=== PATIENT | female | born 1960 | race Caucasian/White ===

== ENCOUNTER 2018-09-10 19:34 | Observation (INO) | payer BC ==
--- NOTE | 2018-09-10 19:40 | ED ---
SOB HPI - General Stated Complaint: SOB Time Seen by Provider: 09/10/18 19:37 Source: RN notes reviewed, old records reviewed - History of Present Illness Initial Comments: This is a 57-year-old female the ER for evaluation. Patient brought in by EMS for significant shortness of breath. Patient does feel improved upon arrival to ER. Per EMS patient was having significant bouts of atrial fibrillation during route rates in the 150s. Patient does have history of [place] valve replacement. denies any chest pain currently. She was a little diaphoretic and short of breath during this episode MD Complaint: shortness of breath -: hour(s) Radiation: other (No pain) Severity: moderate (Shortness of breath) Severity scale (1-10): 5 (Shortness of breath) Consistency: constant Improves With: oxygen, rest Worsens With: exertion Known History Of: other (History of valve replacement) Associated Symptoms: diaphoresis, nausea/vomiting - Related Data Home Medications Medication Instructions Recorded Confirmed Aspirin 325 mg PO HS 09/10/18 09/10/18 Ibuprofen [Motrin] 800 mg PO DAILY PRN 09/10/18 09/10/18 Levothyroxine Sodium 112 mcg PO DAILY 09/10/18 09/10/18 Lisinopril [Zestril] 5 mg PO DAILY 09/10/18 09/10/18 Metoprolol Tartrate [Lopressor] 25 mg PO BID 09/10/18 09/10/18 Melvin-3 Fatty Acids/Fish Oil [Fish 1 cap PO DAILY 09/10/18 09/10/18 Oil 1,000 mg Softgel] Pantoprazole [Protonix] 40 mg PO DAILY 09/10/18 09/10/18 SUMAtriptan SUCCINATE [Imitrex] 50 mg PO DAILY PRN 09/10/18 09/10/18 Simvastatin 40 mg PO HS 09/10/18 09/10/18 Vitamin D3(Unknown) 1 tab PO DAILY 09/10/18 09/10/18 Allergies Allergy/AdvReac Type Severity Reaction Status Date / Time No Known Allergies Allergy Verified 09/10/18 20:09 Review of Systems ROS Statement: Those systems with pertinent positive or pertinent negative responses have been documented in the HPI. ROS Other: All systems not noted in ROS Statement are negative. General Exam General appearance: alert, in no apparent distress, anxious Head exam: Present: atraumatic, normocephalic, normal inspection Eye exam: Present: normal appearance, PERRL, EOMI. Absent: scleral icterus, conjunctival injection, periorbital swelling ENT exam: Present: normal exam, mucous membranes moist Neck exam: Present: normal inspection. Absent: tenderness, meningismus, lymphadenopathy Respiratory exam: Present: normal lung sounds bilaterally. Absent: respiratory distress, wheezes, rales, rhonchi, stridor Cardiovascular Exam: Present: normal rhythm, tachycardia, normal heart sounds. Absent: systolic murmur, diastolic murmur, rubs, gallop, clicks GI/Abdominal exam: Present: soft, normal bowel sounds. Absent: distended, tenderness, guarding, rebound, rigid Extremities exam: Present: normal inspection, full ROM, normal capillary refill. Absent: tenderness, pedal edema, joint swelling, calf tenderness Back exam: Present: normal inspection Neurological exam: Present: alert, oriented X3, CN II-XII intact Psychiatric exam: Present: normal affect, normal mood Skin exam: Present: warm, dry, intact, normal color. Absent: rash Course Vital Signs 09/10/18 19:36 Temperature 97.5 F L Pulse Rate 101 H Respiratory 21 Rate Blood Pressure 114/67 O2 Sat by Pulse 100 Oximetry - Reevaluation(s) Reevaluation #1: 09/10/18 21:44 Medical record reviewed, no prior history of atrial fibrillation Reevaluation #2: 09/10/18 21:44 Patient remains normal sinus rhythm here in the ER Medical Decision Making - Medical Decision Making 37 female the ER with new onset atrial fibrillation with RVR. Patient will admit with anticoagulation cardiology evaluation. - Lab Data Result diagrams: 09/10/18 19:50 09/10/18 19:50 Lab Results 09/10/18 09/10/18 09/10/18 Range/Units 19:44 19:50 19:50 WBC 14.3 H (3.8-10.6) k/uL RBC 3.99 (3.80-5.40) m/uL Hgb 9.7 L (11.4-16.0) gm/dL Hct 31.1 L (34.0-46.0) % MCV 77.9 L (80.0-100.0) fL MCH 24.4 L (25.0-35.0) pg MCHC 31.3 (31.0-37.0) g/dL RDW 14.6 (11.5-15.5) % Plt Count 294 (150-450) k/uL Neutrophils % 64 % Lymphocytes % 26 % Monocytes % 6 % Eosinophils % 1 % Basophils % 1 % Neutrophils # 9.2 H (1.3-7.7) k/uL Lymphocytes # 3.7 (1.0-4.8) k/uL Monocytes # 0.8 (0-1.0) k/uL Eosinophils # 0.2 (0-0.7) k/uL Basophils # 0.1 (0-0.2) k/uL Hypochromasia Moderate PT (9.0-12.0) sec INR (<1.2) APTT (22.0-30.0) sec D-Dimer (<0.60) mg/L FEU Sodium 139 (137-145) mmol/L Potassium 3.3 L (3.5-5.1) mmol/L Chloride 104 (98-107) mmol/L Carbon Dioxide 23 (22-30) mmol/L Anion Gap 12 mmol/L BUN 10 (7-17) mg/dL Creatinine 0.62 (0.52-1.04) mg/dL Est GFR (CKD-EPI)AfAm >90 (>60 ml/min/1.73 sqM) Est GFR (CKD-EPI)NonAf >90 (>60 ml/min/1.73 sqM) Glucose 153 H (74-99) mg/dL POC Glucose (mg/dL) 173 H (75-99) mg/dL POC Glu Topographical Surveyor ID Emy Pimentel Calcium 9.3 (8.4-10.2) mg/dL Phosphorus 4.4 (2.5-4.5) mg/dL Magnesium 1.7 (1.6-2.3) mg/dL Total Bilirubin 0.5 (0.2-1.3) mg/dL AST 27 (14-36) U/L ALT 27 (9-52) U/L Alkaline Phosphatase 71 (38-126) U/L Troponin I (0.000-0.034) ng/mL NT-Pro-B Natriuret Pep pg/mL Total Protein 6.7 (6.3-8.2) g/dL Albumin 4.2 (3.5-5.0) g/dL TSH 2.290 (0.465-4.680) mIU/L 09/10/18 09/10/18 09/10/18 Range/Units 19:50 19:50 19:50 WBC (3.8-10.6) k/uL RBC (3.80-5.40) m/uL Hgb (11.4-16.0) gm/dL Hct (34.0-46.0) % MCV (80.0-100.0) fL MCH (25.0-35.0) pg MCHC (31.0-37.0) g/dL RDW (11.5-15.5) % Plt Count (150-450) k/uL Neutrophils % % Lymphocytes % % Monocytes % % Eosinophils % % Basophils % % Neutrophils # (1.3-7.7) k/uL Lymphocytes # (1.0-4.8) k/uL Monocytes # (0-1.0) k/uL Eosinophils # (0-0.7) k/uL Basophils # (0-0.2) k/uL Hypochromasia PT 10.3 (9.0-12.0) sec INR 1.0 (<1.2) APTT 22.7 (22.0-30.0) sec D-Dimer 0.44 (<0.60) mg/L FEU Sodium (137-145) mmol/L Potassium (3.5-5.1) mmol/L Chloride (98-107) mmol/L Carbon Dioxide (22-30) mmol/L Anion Gap mmol/L BUN (7-17) mg/dL Creatinine (0.52-1.04) mg/dL Est GFR (CKD-EPI)AfAm (>60 ml/min/1.73 sqM) Est GFR (CKD-EPI)NonAf (>60 ml/min/1.73 sqM) Glucose (74-99) mg/dL POC Glucose (mg/dL) (75-99) mg/dL POC Glu Topographical Surveyor ID Calcium (8.4-10.2) mg/dL Phosphorus (2.5-4.5) mg/dL Magnesium (1.6-2.3) mg/dL Total Bilirubin (0.2-1.3) mg/dL AST (14-36) U/L ALT (9-52) U/L Alkaline Phosphatase (38-126) U/L Troponin I 0.042 H* (0.000-0.034) ng/mL NT-Pro-B Natriuret Pep 484 pg/mL Total Protein (6.3-8.2) g/dL Albumin (3.5-5.0) g/dL TSH (0.465-4.680) mIU/L - EKG Data -: EKG Interpreted by Me (EKG shows sinus rhythm rate of 99, CO 170, QRS 132, QTc 492) Rate: normal When compared to previous EKG there are: other (Patient is EKG in route which does show A. fib with RVR) Interpretation: other (Rhythm strip does show normal sinus rhythm rate of 98) - Radiology Data Radiology results: report reviewed (Chest x-rays negative for acute disease), image reviewed Disposition Clinical Impression: Atrial fibrillation with RVR, Elevated troponin Disposition: ADMITTED IP TO THIS HOSP Condition: Fair Is patient prescribed a controlled substance at d/c from ED?: No Referrals: Jg Mcadams MD [Primary Care Provider] - 1-2 days
[2018-09-10 19:46] LABS: Glucose,Whole Blood 173 mg/dL (75-99)
[2018-09-10] MEDS ORDERED: SODIUM CHLORIDE 0.9% 1,000 ML IV STA (19:58)
[2018-09-10] MEDS ORDERED: METOPROLOL TARTRATE 5 MG/5 ML VIAL IVP STA (19:58)
[2018-09-10 20:22] LABS: Basophils # (A) 0.1 k/uL (0-0.2); Basophils % (A) 1 %; Eosinophils # (A) 0.2 k/uL (0-0.7); Eosinophils % (A) 1 %; HCT 31.1 % (34.0-46.0); HGB 9.7 gm/dL (11.4-16.0); Hypochromasia Moderate; Lymphocytes # (A) 3.7 k/uL (1.0-4.8); Lymphocytes % (A) 26 %; MCH 24.4 pg (25.0-35.0); MCHC 31.3 g/dL (31.0-37.0); MCV 77.9 fL (80.0-100.0); Mean Platelet Volume 8.6; Monocytes # (A) 0.8 k/uL (0-1.0); Monocytes % (A) 6 %; Neutrophils # (A) 9.2 k/uL (1.3-7.7); Neutrophils % (A) 64 %; Platelet Count 294 k/uL (150-450); RBC 3.99 m/uL (3.80-5.40); RDW 14.6 % (11.5-15.5); WBC 14.3 k/uL (3.8-10.6)
[2018-09-10 20:23] LABS: ALT 27 U/L (9-52); AST 27 U/L (14-36); Albumin 4.2 g/dL (3.5-5.0); Alkaline Phosphatase 71 U/L (38-126); Anion Gap 12 mmol/L; Blood Urea Nitrogen 10 mg/dL (7-17); Calcium 9.3 mg/dL (8.4-10.2); Carbon Dioxide 23 mmol/L (22-30); Chloride 104 mmol/L (98-107); Glucose 153 mg/dL (74-99); Magnesium 1.7 mg/dL (1.6-2.3); Phosphorus 4.4 mg/dL (2.5-4.5); Potassium 3.3 mmol/L (3.5-5.1); Sodium 139 mmol/L (137-145); Total Bilirubin 0.5 mg/dL (0.2-1.3); Total Protein 6.7 g/dL (6.3-8.2)
[2018-09-10 20:24] LABS: D-Dimer 0.44 mg/L FEU (<0.60); Partial Thromboplastin Time 22.7 sec (22.0-30.0); Prothrombin Time 10.3 sec (9.0-12.0)
--- NOTE | 2018-09-10 20:43 | XR ---
EXAMINATION: XR chest 2V DATE AND TIME: 09/10/2018 8:24 PM CLINICAL INDICATION: PHH; Weakness TECHNIQUE: Departmental protocol COMPARISON: None FINDINGS: The lungs are clear. The pleural spaces are negative. Sternal sutures and mediastinal clips and EKG leads noted. The cardiac silhouette is mildly enlarged. The remainder of the mediastinal silhouette is unremarkable. The skeletal structures and soft tissues are negative for acute findings. IMPRESSION: NO ACUTE PROCESS.
[2018-09-10] MEDS ORDERED: HEPARIN SODIUM,PORCINE 5,000 UNIT/ML 1 ML VIAL IV ONE (21:40)
[2018-09-10] MEDS ORDERED: HEPARIN SODIUM,PORCINE 5,000 UNIT/ML 1 ML VIAL IV PRN ×2 (21:40→22:03)
[2018-09-10] MEDS ORDERED: NITROGLYCERIN SL TABS 0.4 MG TAB SUBLINGUAL PRN ×2 (21:40→22:03)
[2018-09-10] MEDS ORDERED: SODIUM CHLORIDE 0.9% 1,000 ML IV SCH (21:45)
[2018-09-10] MEDS: HEPARIN SOD,PORK IN 0.45% NACL 25,000 UNIT in 0.45% NACL 1 250ML.BAG IV SCH (22:54)
[2018-09-10] MEDS: SODIUM CHLORIDE 0.9% 1,000 ML IV SCH (23:47)
[2018-09-11 03:57] LABS: Mean Platelet Volume 8.6; Platelet Count 271 k/uL (150-450)
[2018-09-11 05:03] LABS: Cholesterol 132 mg/dL (<200); HDL Cholesterol 34 mg/dL (40-60); LDL Cholesterol,Calculated 74 mg/dL (0-99); Triglycerides 122 mg/dL (<150)
[2018-09-11] MEDS: SODIUM CHLORIDE 0.9% 1,000 ML IV SCH ×2 (08:47→17:10)
[2018-09-11] MEDS: ATORVASTATIN 80 MG TAB PO SCH (08:47)
[2018-09-11 08:57] VITALS: RESP 18
[2018-09-11] MEDS ORDERED: ASPIRIN 325 MG TAB PO SCH ×2 (09:00)
[2018-09-11] MEDS ORDERED: ATORVASTATIN 80 MG TAB PO SCH (09:00)
[2018-09-11] MEDS ORDERED: METOPROLOL TARTRATE 25 MG TAB PO SCH ×2 (09:00)
--- NOTE | 2018-09-11 11:27 | P.CRDCN ---
History of Present Illness Consult date: 09/11/18 Requesting physician: Carrie Mcclellan Consult reason: atrial fibrillation Chief complaint: Shortness of breath History of present illness: This is a pleasant 57-year-old female with history of aortic valve replacement, hypertension, hyperlipidemia, eye post thyroidism who follows regularly with Dr. Daugherty in the office. She presents to the hospital on this occasion with symptoms of fairly sudden onset of shortness of breath. She denies any overt palpitations, but states that she could hardly breathe. Patient also states that she became very dizzy and felt as though she may pass out. The EKG performed on EMS arrival showed atrial fibrillation with a rapid ventricular response. EKG performed in the emergency on arrival here showed sinus tachycardia with left ventricular hypertrophy. Since her arrival here she has had a couple episodes of brief atrial fibrillation. According to the patient, she has not ever been told in the past to have any irregular heartbeat. Chest x-ray showed no acute process. Blood pressure on arrival here 114/60 with a heart rate of 100, 100% on room air. Blood pressure this morning 106/60 with a heart rate in the 90s, 98% on room air. White blood cell count 14.3, hemoglobin 9.7, platelet count 271. D-dimer 0.44, sodium 139, potassium 3.3, BUN 10 and creatinine 0.6. BNP level 484. TSH 2.2. Troponins 0.96, 0.74. At the time of my examination this morning, patient feels well, denies any shortness of breath, no palpitations. No chest discomfort. An echocardiogram with Doppler study has been requested. Past Medical History Past Medical History: GERD/Reflux, Hyperlipidemia, Hypertension, Thyroid Disorder History of Any Multi-Drug Resistant Organisms: None Reported Past Surgical History: Cholecystectomy Additional Past Surgical History / Comment(s): Aortic valve replacement 2006 Past Anesthesia/Blood Transfusion Reactions: No Reported Reaction Smoking Status: Never smoker - Past Family History Father Additional Family Medical History / Comment(s): Father at age 52 from a myocardial infarction. Mother Additional Family Medical History / Comment(s): Mother at age 89 with history of hyperlipidemia and hypothyroidism. Brother(s) Additional Family Medical History / Comment(s): Patient has 4 brothers and one at age 65 with known coronary artery disease and two-vessel CABG at age 55. 3 other brothers all have high cholesterol. Patient has one sister with hyperlipidemia. Patient does not have any children. Medications and Allergies Home Medications Medication Instructions Recorded Confirmed Type Levothyroxine Sodium 112 mcg PO DAILY 09/10/18 09/10/18 History Lisinopril [Zestril] 5 mg PO DAILY 09/10/18 09/10/18 History Metoprolol Tartrate [Lopressor] 25 mg PO BID 09/10/18 09/10/18 History [place]-3 Fatty Acids/Fish Oil [Fish 1 cap PO DAILY 09/10/18 09/10/18 History Oil 1,000 mg Softgel] Pantoprazole [Protonix] 40 mg PO DAILY 09/10/18 09/10/18 History SUMAtriptan SUCCINATE [Imitrex] 50 mg PO DAILY PRN 09/10/18 09/10/18 History Vitamin D3(Unknown) 1 tab PO DAILY 09/10/18 09/10/18 History Allergies Allergy/AdvReac Type Severity Reaction Status Date / Time No Known Allergies Allergy Verified 09/10/18 20:09 Physical Exam Vitals: Vital Signs Temp Pulse Pulse Resp BP BP Pulse Ox 09/11/18 08:00 97.8 F 101 H 18 106/65 98 09/11/18 03:43 98.1 F 88 12 111/53 97 09/11/18 02:06 97.6 F 90 12 115/57 100 09/11/18 01:14 98.2 F 83 19 101/62 99 09/10/18 23:48 82 19 107/64 99 09/10/18 22:59 99.2 F 81 18 95/61 100 09/10/18 21:30 85 18 104/70 99 09/10/18 21:00 82 17 107/69 98 09/10/18 20:30 90 17 98/63 100 09/10/18 20:00 106 H 18 114/67 09/10/18 19:36 97.5 F L 101 H 21 114/67 100 Intake and Output 09/10/18 09/11/18 09/11/18 22:59 06:59 14:59 Intake Total 53.181 Balance 53.181 Intake: Intake, IV Titration 53.181 Amount Heparin Sod,Pork in 0.45% 53.181 NaCl 25,000 unit In 0.45 % NaCl 1 250ml.bag @ 12 UNITS/KG/HR 9.525 mls/hr IV .Q24H [facility] Rx#: [id number] Other: # Voids 1 Weight 79.379 kg 81.4 kg PHYSICAL EXAMINATION: GENERAL: She 7-year-old female in no acute distress at the time of my examination HEENT: Head is atraumatic, normocephalic. Pupils equal, round. Sclera anicteric. Conjunctiva are clear. Mucous membranes of the mouth are moist. Neck is supple. There is no elevated jugular venous pressure. Bilateral carotid bruits are heard, likely radiation from aortic murmur. HEART EXAMINATION: Heart S1 no audible S2 systolic ejection murmur is heard in the aortic area, systolic murmur in mitral valve area CHEST EXAMINATION: Lungs are clear to auscultation and precussion. No chest wall tenderness is noted on palpation or with deep breathing. ABDOMEN: Soft, nontender. Bowel sounds are heard. No organomegaly noted. EXTREMITIES: 2+ peripheral pulses with no evidence of peripheral edema and no calf tenderness noted. NEUROLOGIC patient is awake, alert and oriented 3 . . Results 09/12/18 06:45 09/12/18 06:45 Cardiac Enzymes 09/10/18 09/10/18 09/11/18 Range/Units 19:50 19:50 03:35 AST 27 (14-36) U/L Troponin I 0.042 H* 0.966 H* (0.000-0.034) ng/mL 09/11/18 Range/Units 07:38 AST (14-36) U/L Troponin I 0.744 H* (0.000-0.034) ng/mL Coagulation 09/10/18 09/11/18 Range/Units 19:50 03:35 PT 10.3 (9.0-12.0) sec APTT 22.7 41.4 H (22.0-30.0) sec Lipids 09/11/18 Range/Units 03:35 Triglycerides 122 (<150) mg/dL Cholesterol 132 (<200) mg/dL HDL Cholesterol 34 L (40-60) mg/dL CBC 09/10/18 09/11/18 Range/Units 19:50 03:35 WBC 14.3 H (3.8-10.6) k/uL RBC 3.99 (3.80-5.40) m/uL Hgb 9.7 L (11.4-16.0) gm/dL Hct 31.1 L (34.0-46.0) % Plt Count 294 271 (150-450) k/uL Comprehensive Metabolic Panel 09/10/18 Range/Units 19:50 Sodium 139 (137-145) mmol/L Potassium 3.3 L (3.5-5.1) mmol/L Chloride 104 (98-107) mmol/L Carbon Dioxide 23 (22-30) mmol/L BUN 10 (7-17) mg/dL Creatinine 0.62 (0.52-1.04) mg/dL Glucose 153 H (74-99) mg/dL Calcium 9.3 (8.4-10.2) mg/dL AST 27 (14-36) U/L ALT 27 (9-52) U/L Alkaline Phosphatase 71 (38-126) U/L Total Protein 6.7 (6.3-8.2) g/dL Albumin 4.2 (3.5-5.0) g/dL Current Medications Generic Name Dose Route Start Last Admin Trade Name Freq PRN Reason Stop Dose Admin Aspirin 81 mg 09/12/18 09:00 Aspirin PO DAILY [facility] Atorvastatin Calcium 80 mg 09/11/18 09:00 09/11/18 08:47 Lipitor PO 80 mg DAILY JAY Administration Heparin Sodium (Porcine) 0 unit 09/10/18 22:03 Heparin IV Q6HR PRN Low PTT Protocol Heparin Sodium/Sodium Chloride 250 mls @ 9.525 mls/hr 09/10/18 21:45 09/11/18 04:29 25,000 unit/ Sodium Chloride IV 14 units/kg/hr .Q24H JAY 11.113 mls/hr Titration Protocol 12 UNITS/KG/HR Sodium Chloride 1,000 mls @ 100 mls/hr 09/10/18 22:00 09/11/18 08:47 Saline 0.9% IV 100 mls/hr .Q10H JAY Administration Metoprolol Tartrate 25 mg 09/11/18 09:00 09/11/18 08:47 Lopressor PO 25 mg BID JAY Administration Nitroglycerin 0.4 mg 09/10/18 22:03 Nitrostat SUBLINGUAL Q5M PRN Chest Pain Intake and Output 05/0109/11/18 09/11/18 22:59 06:59 14:59 Intake Total 53.181 Balance 53.181 Intake: Intake, IV Titration 53.181 Amount Heparin Sod,Pork in 0.45% 53.181 NaCl 25,000 unit In 0.45 % NaCl 1 250ml.bag @ 12 UNITS/KG/HR 9.525 mls/hr IV .Q24H [facility] Rx#: [id number] Other: # Voids 1 Weight 79.379 kg 81.4 kg 09/11/18 03:35 09/10/18 19:50 EKG Interpretations (text) EKG in the EMS showed atrial fibrillation with rapid ventricular response. Subsequent EKG here showed a sinus tachycardia with LVH strain pattern Assessment and Plan Plan: Assessment and plan #1 symptoms of shortness of breath with associated venous, evidence of atrial fibrillation with rapid ventricular response, paroxysmal #2 history of aortic valve replacement [address] Alexis at [facility] #3 hypertension #4 hyperlipidemia #5 hypothyroidism #6 hypokalemia #7 abnormality in troponin, likely secondary to A. fib with RVR. Plan We will obtain an echocardiogram with Doppler study to assess the valves and LV function, replace potassium. Continue IV heparin at this time and look into one of the newer anticoagulants. Patient and her family have been educated regarding the importance of anticoagulation for stroke prevention. Further recommendations to follow. DNP note has been reviewed, I agree with a documented findings and plan of care. Patient was seen and examined.
--- NOTE | 2018-09-11 12:31 | P.HPIM ---
History of Present Illness H&P Date: 09/11/18 Chief Complaint: NITESH, dizziness, clammy This is a 57-year-old female patient of Dr. Mcadams and Dr. Daugherty with past medical history of gastroesophageal reflux disease, hypertension, hyperlipidemia, hypothyroidism, aortic valve replacement done in 2005 at [facility]. She denies having any history of atrial fibrillation following the procedure. Patient states that yesterday she got home and she was unloading her [place] she had sudden onset of clamminess, shortness of breath and dizziness. She was feeling lightheaded and thought she was going to pass out. She denies having symptoms like this before. She denies having any palpitations. of having sudden onset of shortness of breath. Patient was brought into the hospital by EMS and during transport was found to have atrial fibrillation with RVR. Upon arrival to the emergency center, EKG was a sinus tachycardia. She did have a couple brief episodes of atrial fibrillation. Otherwise, her vital signs were stable with blood pressure 114/60, heart rate of 100, pulse ox 100% on room air. WBC count 14.3, hemoglobin 9.7, platelet count 271. D-dimer 0.44, sodium 139, potassium 3.3, BUN 10 and creatinine 0.6. BNP was 484 and TSH 2.2. Troponin 0.96 and 0.74. Patient was placed on the s elective care stepdown unit and cardiology consult requested. Patient has had an echocardiogram obtained this morning. Review of Systems Constitutional: Denies chills, Denies fatigue, Denies fever, Denies lethargy, Denies malaise, Denies poor appetite, Denies weakness, Denies weight loss Ears, nose, mouth and throat: Reports vertigo, Denies dysphagia, Denies mouth pain, Denies nasal congestion, Denies nasal discharge Cardiovascular: Reports dyspnea on exertion, Reports lightheadedness, Reports shortness of breath, Denies chest pain, Denies edema, Denies palpitations, Denies syncope Respiratory: Reports dyspnea, Denies cough, Denies cough with sputum, Denies excessive sputum, Denies hemoptysis, Denies home oxygen, Denies respiratory infections, Denies sleep apnea, Denies wheezing Gastrointestinal: Denies abdominal pain, Denies diarrhea, Denies loss of appetite, Denies nausea, Denies vomiting Genitourinary: Denies dysuria, Denies hematuria Musculoskeletal: Denies frequent falls, Denies gait dysfunction, Denies muscle weakness, Denies myalgias Integumentary: Denies pruritus, Denies rash, Denies wounds Neurological: Denies aphasia, Denies change in mentation, Denies change in speech, Denies gait dysfunction, Denies head injury, Denies headaches, Denies numbness, Denies seizures, Denies weakness Past Medical History Past Medical History: GERD/Reflux, Hyperlipidemia, Hypertension, Thyroid Disorder History of Any Multi-Drug Resistant Organisms: None Reported Past Surgical History: Cholecystectomy Additional Past Surgical History / Comment(s): Aortic valve replacement 2006 colonoscopy in 2013 that was benign, EGD with gastritis, no hiatal hernia. Past Anesthesia/Blood Transfusion Reactions: No Reported Reaction Smoking Status: Never smoker Additional Past Alcohol Use History / Comment(s): Patient is a lifelong nonsmoker, no illicit drug use, occasional alcohol use. - Past Family History Father Additional Family Medical History / Comment(s): Father at age 52 from a myocardial infarction. Mother Additional Family Medical History / Comment(s): Mother at age 89 with history of hyperlipidemia and hypothyroidism. Brother(s) Additional Family Medical History / Comment(s): Patient has 4 brothers and one at age 65 with known coronary artery disease and two-vessel CABG at age 55. 3 other brothers all have high cholesterol. Patient has one sister with hyperlipidemia. Patient does not have any children. Medications and Allergies Home Medications Medication Instructions Recorded Confirmed Type Levothyroxine Sodium 112 mcg PO DAILY 09/10/18 09/10/18 History Lisinopril [Zestril] 5 mg PO DAILY 09/10/18 09/10/18 History Metoprolol Tartrate [Lopressor] 25 mg PO BID 09/10/18 09/10/18 History [place]-3 Fatty Acids/Fish Oil [Fish 1 cap PO DAILY 09/10/18 09/10/18 History Oil 1,000 mg Softgel] Pantoprazole [Protonix] 40 mg PO DAILY 09/10/18 09/10/18 History SUMAtriptan SUCCINATE [Imitrex] 50 mg PO DAILY PRN 09/10/18 09/10/18 History Vitamin D3(Unknown) 1 tab PO DAILY 09/10/18 09/10/18 History Aspirin EC [Ecotrin Low Dose] 81 mg PO DAILY #30 tablet. 09/11/18 Rx Atorvastatin [Lipitor] 80 mg PO DAILY #30 tab 09/11/18 Rx Nitroglycerin Sl Tabs [Nitrostat] 0.4 mg SUBLINGUAL Q5M PRN #25 tab 09/11/18 Rx Allergies Allergy/AdvReac Type Severity Reaction Status Date / Time No Known Allergies Allergy Verified 09/10/18 20:09 Physical Exam Vitals: Vital Signs Temp Pulse Pulse Resp BP BP Pulse Ox 09/11/18 08:00 97.8 F 101 H 18 106/65 98 09/11/18 03:43 98.1 F 88 12 111/53 97 09/11/18 02:06 97.6 F 90 12 115/57 100 09/11/18 01:14 98.2 F 83 19 101/62 99 09/10/18 23:48 82 19 107/64 99 09/10/18 22:59 99.2 F 81 18 95/61 100 09/10/18 21:30 85 18 104/70 99 09/10/18 21:00 82 17 107/69 98 09/10/18 20:30 90 17 98/63 100 09/10/18 20:00 106 H 18 114/67 09/10/18 19:36 97.5 F L 101 H 21 114/67 100 Intake and Output 09/10/18 09/11/18 09/11/18 22:59 06:59 14:59 Intake Total 53.181 Balance 53.181 Intake: Intake, IV Titration 53.181 Amount Heparin Sod,Pork in 0.45% 53.181 NaCl 25,000 unit In 0.45 % NaCl 1 250ml.bag @ 12 UNITS/KG/HR 9.525 mls/hr IV .Q24H COUNTS INCLUDE 234 BEDS AT THE [facility] Rx#: [id number] Other: # Voids 1 Weight 79.379 kg 81.4 kg Gen: This is a 57-year-old female. Patient is resting in bed and appears to be comfortable and in no acute distress. HEENT: Head is atraumatic, normocephalic. Pupils equal, round. Sclerae is anicte eli. NECK: Supple. No JVD. No lymphadenopathy. No thyromegaly. LUNGS: Clear to auscultation. No wheezes or rhonchi. No intercostal retractions. HEART: Regular rate and rhythm. Systolic murmur. ABDOMEN: Soft. Bowel sounds are present. No masses. No tenderness. EXTREMITIES: No pedal edema. No calf tenderness. NEUROLOGICAL: Patient is awake, alert and oriented x3. Cranial nerves 2 through 12 are grossly intact. Results CBC & Chem 7: 09/11/18 03:35 09/10/18 19:50 Labs: Abnormal Lab Results - Last 24 Hours (Table) 09/10/18 09/10/18 09/10/18 Range/Units 19:44 19:50 19:50 WBC 14.3 H (3.8-10.6) k/uL Hgb 9.7 L (11.4-16.0) gm/dL Hct 31.1 L (34.0-46.0) % MCV 77.9 L (80.0-100.0) fL MCH 24.4 L (25.0-35.0) pg Neutrophils # 9.2 H (1.3-7.7) k/uL APTT (22.0-30.0) sec Potassium 3.3 L (3.5-5.1) mmol/L Glucose 153 H (74-99) mg/dL POC Glucose (mg/dL) 173 H (75-99) mg/dL Troponin I (0.000-0.034) ng/mL HDL Cholesterol (40-60) mg/dL 09/10/18 09/11/18 09/11/18 Range/Units 19:50 03:35 03:35 WBC (3.8-10.6) k/uL Hgb (11.4-16.0) gm/dL Hct (34.0-46.0) % MCV (80.0-100.0) fL MCH (25.0-35.0) pg Neutrophils # (1.3-7.7) k/uL APTT 41.4 H (22.0-30.0) sec Potassium (3.5-5.1) mmol/L Glucose (74-99) mg/dL POC Glucose (mg/dL) (75-99) mg/dL Troponin I 0.042 H* 0.966 H* (0.000-0.034) ng/mL HDL Cholesterol (40-60) mg/dL 05/02/19 05/02/19 Range/Units 03:35 07:38 WBC (3.8-10.6) k/uL Hgb (11.4-16.0) gm/dL Hct (34.0-46.0) % MCV (80.0-100.0) fL MCH (25.0-35.0) pg Neutrophils # (1.3-7.7) k/uL APTT (22.0-30.0) sec Potassium (3.5-5.1) mmol/L Glucose (74-99) mg/dL POC Glucose (mg/dL) (75-99) mg/dL Troponin I 0.744 H* (0.000-0.034) ng/mL HDL Cholesterol 34 L (40-60) mg/dL Thrombosis Risk Factor Assmnt - DVT/VTE Prophylaxis DVT/VTE Prophylaxis: Pharmacologic Prophylaxis ordered - Choose All That Apply Each Factor Represents 1 point: Age 41-60 years, Obesity (BMI >25) Thrombosis Risk Factor Assessment Total Risk Factor Score: 2 Thrombosis Risk Factor Assessment Level: Low Risk Assessment and Plan Plan: 1. New onset of A. fib with rapid ventricular response, paroxysmal. Patient is currently in a sinus rhythm. Echocardiogram has been done and report is pending. Cardiology consult appreciated. Patient is currently on heparin drip and Lopressor 25 mg twice daily. 2. History of aortic valve replacement on the [facility] in 2005, stable. 3. Hypertension. Continue Lopressor 25 mg twice daily 4. Hyperlipidemia. Continue atorvastatin 80 mg daily. 5. Hypothyroidism. Continue levothyroxine 112 g daily. 6. Gastroesophageal reflux disease and GI prophylaxis. Continue Protonix 40 mg daily. 7. DVT prophylaxis. Patient is on heparin drip. Patient will be admitted to the hospital for a minimum of 2 night stay. Discharge plan: Home in the next 24-48 hours. Impression and plan of care have been directed as dictated by the signing physician. Rochelle Jacome nurse practitioner acting as scribe for signing physician.
--- NOTE | 2018-09-11 15:58 | ECHOF ---
Referral Reason:sob MEASUREMENTS -------- HEIGHT: 154.9 cm WEIGHT: 8.6 kg BP: IVSd: 1.5 cm (0.6 - 1.1) LVIDd: 4.0 cm (3.9 - 5.3) LVPWd: 1.5 cm (0.6 - 1.1) IVSs: 1.8 cm LVIDs: 2.7 cm LVPWs: 1.9 cm RVIDd: 1.8 cm (< 3.3) LAESV Index (A-L): 112.29 ml/m Ao Diam: 2.8 cm (2.0 - 3.7) LA Diam: 3.8 cm (2.7 - 3.8) AV Cusp: 1.3 cm (1.5 - 2.6) EPSS: 1.3 cm MV E Miguel Angel: 1.32 m/s MV DecT: 221 ms MV A Miguel Angel: 0.91 m/s MV E/A Ratio: 1.45 AV maxP.35 mmHg AV meanP.87 mmHg RAP: 5.00 mmHg RVSP: 40.13 mmHg MV EF SLOPE: 66.55 mm/s (70 - 150) MV EXCURSION: 9.72 mm (> 18.000) FINDINGS -------- Sinus rhythm. This was a technically good study. The left ventricular size is normal. There is moderate concentric left ventricular hypertrophy. O verall left ventricular systolic function is normal with, an EF between 55 - 60 %. The right ventricle is normal in size. LA is severely dilated >40 ml/m2 The right atrial size is normal. Interatrial and interventricular septum intact. Peak/mean gradient across the Aortic Valve is 67.35mmHg / 46.87mmHg. 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 Moderate mitral regurgitation is present. Moderate tricuspid regurgitation present. There is mild pulmonary hypertension. The right ventric ular systolic pressure, as measured by Doppler, is 40.13mmHg. There is no pulmonic regurgitation present. The aortic root size is normal. Normal inferior vena cava with normal inspiratory collapse consistent with estimated right atrial pre ssure of 5 mmHg. There is a trivial pericardial effusion present. CONCLUSIONS -------- 1. Sinus rhythm. 2. This was a technically good study. 3. The left ventricular size is normal. 4. There is moderate concentric left ventricular hypertrophy. 5. Overall left ventricular systolic function is normal with, an EF between 55 - 60 %. 6. The right ventricle is normal in size. 7. LA is severely dilated >40 ml/m2 8. The right atrial size is normal. 9. Interatrial and interventricular septum intact. 10. Peak/mean gradient across the Aortic Valve is 67.35mmHg / 46.87mmHg. 11. 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 12. Moderate mitral regurgitation is present. 13. Moderate tricuspid regurgitation present. 14. There is mild pulmonary hypertension. 15. There is no pulmonic regurgitation present. 16. The aortic root size is normal. 17. Normal inferior vena cava with normal inspiratory collapse consistent with estimated right atrial pressure of 5 mmHg. 18. There is a trivial pericardial effusion present. CUSTOMER RESPONSE REPRESENTATIVE: Michelle Franco RDCS
[2018-09-11] MEDS: METOPROLOL TARTRATE 25 MG TAB PO SCH ×2 (16:01→20:14)
[2018-09-11] MEDS ORDERED: POTASSIUM CHLORIDE ER 20 MEQ TAB.ER PO STA (22:48)
[2018-09-11] MEDS: MAGNESIUM SULFATE-D5W PMX 1 GM in DEXTROSE/WATER 1 100ML.BAG IVPB SCH (23:16)
[2018-09-11] MEDS: HEPARIN SOD,PORK IN 0.45% NACL 25,000 UNIT in 0.45% NACL 1 250ML.BAG IV SCH (23:19)
[2018-09-12] MEDS: MAGNESIUM SULFATE-D5W PMX 1 GM in DEXTROSE/WATER 1 100ML.BAG IVPB SCH (00:26)
[2018-09-12] MEDS: SODIUM CHLORIDE 0.9% 1,000 ML IV SCH (06:06)
[2018-09-12 07:06] LABS: Mean Platelet Volume 8.6; Platelet Count 260 k/uL (150-450)
[2018-09-12 07:35] LABS: Magnesium 2.2 mg/dL (1.6-2.3); Potassium 4.2 mmol/L (3.5-5.1)
[2018-09-12] MEDS ORDERED: ASPIRIN 81 MG PO SCH (09:00)
[2018-09-12] MEDS: ATORVASTATIN 80 MG TAB PO SCH (09:08)
[2018-09-12] MEDS: METOPROLOL TARTRATE 25 MG TAB PO SCH (09:08)
[2018-09-12 10:06] VITALS: TEMP 97.4
[2018-09-12] MEDS ORDERED: APIXABAN 5 MG TAB PO SCH (11:45)
[2018-09-12 11:54] LABS: HCT 27.7 % (34.0-46.0); HGB 8.4 gm/dL (11.4-16.0); Hypochromasia Marked; MCH 24.4 pg (25.0-35.0); MCHC 30.3 g/dL (31.0-37.0); MCV 80.3 fL (80.0-100.0); RBC 3.44 m/uL (3.80-5.40); RDW 15.1 % (11.5-15.5); WBC 12.3 k/uL (3.8-10.6)
[2018-09-12 12:00] LABS: Platelet Count 260 k/uL (150-450)
[2018-09-12] MEDS ORDERED: METOPROLOL TARTRATE 50 MG TAB PO SCH (12:00)
[2018-09-12] MEDS ORDERED: FERROUS SULFATE 325 MG TAB PO SCH (12:30)
[2018-09-12] MEDS ORDERED: METOPROLOL TARTRATE 25 MG TAB PO STA (12:33)
--- NOTE | 2018-09-12 12:46 | P.PN ---
Subjective Progress Note Date: 09/12/18 This is a pleasant 57-year-old female with history of aortic valve replacement, hypertension, hyperlipidemia, eye post thyroidism who follows regularly with Dr. Daugherty in the office. She presents to the hospital on this occasion with symptoms of fairly sudden onset of shortness of breath. She denies any overt palpitations, but states that she could hardly breathe. Patient also states that she became very dizzy and felt as though she may pass out. The EKG performed on EMS arrival showed atrial fibrillation with a rapid ventricular response. EKG performed in the emergency on arrival here showed sinus tachycardia with left ventricular hypertrophy. Since her arrival here she has had a couple episodes of brief atrial fibrillation. According to the patient, she has not ever been told in the past to have any irregular heartbeat. Chest x-ray showed no acute process. Blood pressure on arrival here 114/60 with a heart rate of 100, 100% on room air. Blood pressure this morning 106/60 with a heart rate in the 90s, 98% on room air. White blood cell count 14.3, hemoglobin 9.7, platelet count 271. D-dimer 0.44, sodium 139, potassium 3.3, BUN 10 and creatinine 0.6. BNP level 484. TSH 2.2. Troponins 0.96, 0.74. At the time of my examination this morning, patient feels well, denies any shortness of breath, no palpitations. No chest discomfort. An echocardiogram with Doppler study has been requested. 09/12/2018 Patient seen and examined this morning, continues to be in atrial fibrillation with a heart rate in the low 100s. Echocardiogram with Doppler study was perfo rmed which revealed a peak mean gradient across the aortic valve of 67.3 5/46.8, suggestive of severe aortic stenosis, moderate MR and moderate TR. Blood pressure 114/70, 95% on room air. Patient feels well, quite eager to be discharged home today. From our perspective she may be able to be discharged, we will increase her dose of beta carlos, she has been initiated on Eliquis by primary doctor. We will make her a follow-up appointment with Dr. Daugherty in the office. Objective - Vital Signs Vital signs: Vital Signs Temp 97.4 F L 09/12/18 08:50 Pulse 107 H 05/03/19 08:50 Resp 18 09/12/18 08:50 BP 114/76 09/12/18 08:50 Pulse Ox 95 09/12/18 08:50 Intake & Output 09/11/18 09/12/18 09/12/18 18:59 06:59 18:59 Intake Total 630.015 106.804 280 Balance 630.015 106.804 280 Weight 82 kg Intake: Intake, IV Titration 90.015 106.804 Amount Heparin Sod,Pork in 0.45% 90.015 106.804 NaCl 25,000 unit In 0.45 % NaCl 1 250ml.bag @ 12 UNITS/KG/HR 9.525 mls/hr IV .Q24H [facility] Rx#: [id number] Oral 540 280 Other: Voiding Method Toilet # Voids 3 1 3 - Exam PHYSICAL EXAMINATION: GENERAL: She 7-year-old female in no acute distress at the time of my examination HEENT: Head is atraumatic, normocephalic. Pupils equal, round. Sclera anicteric. Conjunctiva are clear. Mucous membranes of the mouth are moist. Neck is supple. There is no elevated jugular venous pressure. Bilateral carotid bruits are heard, likely radiation from aortic murmur. HEART EXAMINATION: Heart S1 no audible S2 systolic ejection murmur is heard in the aortic area, systolic murmur in mitral valve area CHEST EXAMINATION: Lungs are clear to auscultation and precussion. No chest wall tenderness is noted on palpation or with deep breathing. ABDOMEN: Soft, nontender. Bowel sounds are heard. No organomegaly noted. EXTREMITIES: 2+ peripheral pulses with no evidence of peripheral edema and no calf tenderness noted. NEUROLOGIC patient is awake, alert and oriented 3 . - Labs CBC & Chem 7: 09/12/18 06:45 09/12/18 06:45 Labs: Abnormal Lab Results - Last 24 Hours (Table) 09/11/18 09/12/18 09/12/18 Range/Units 18:11 06:45 06:45 WBC 12.3 H (3.8-10.6) k/uL RBC 3.44 L (3.80-5.40) m/uL Hgb 8.4 L (11.4-16.0) gm/dL Hct 27.7 L (34.0-46.0) % MCH 24.4 L (25.0-35.0) pg MCHC 30.3 L (31.0-37.0) g/dL APTT 72.7 H 57.2 H (22.0-30.0) sec Assessment and Plan Plan: Assessment and plan #1 symptoms of shortness of breath with associated venous, evidence of atrial fibrillation with rapid ventricular response, paroxysmal #2 history of aortic valve replacement [address] Alexis at [facility] #3 hypertension #4 hyperlipidemia #5 hypothyroidism #6 hypokalemia #7 abnormality in troponin, likely secondary to A. fib with RVR. Plan Echocardiogram with Doppler study was performed which revealed severe aortic st enosis with moderate MR and moderate TR, normal LV function. We will increase the dose of beta carlos today. Patient has been started on Eliquis by primary care doctor. She does have history of aortic valve replacement 13 years ago, we will make her a follow-up appointment with Dr. Daugherty in the office post discharge. DNP note has been reviewed, I agree with a documented findings and plan of care. Patient was seen and examined.
[2018-09-12 13:27] VITALS: BP 122/79; PULSE 96
--- NOTE | 2018-09-12 16:02 | P.DS ---
Providers Date of admission: 09/10/18 21:40 Expected date of discharge: 09/12/18 Attending physician: Carrie Mcclellan Consults: 09/10/18 21:40 Consult Physician Urgent Consulting Provider: Justin Daugherty Consult Reason/Comments: elevTrop Do you want consulting provider notified?: Yes Primary care physician: Jg Mcadams MD Hospital Course: This is a 57-year-old female patient of Dr. Mcadams and Dr. Daugherty with past medical history of gastroesophageal reflux disease, hypertension, hyperlipidemia, hypothyroidism, aortic valve replacement done in 2005 at [facility]. She denies having any history of atrial fibrillation following the procedure. Patient states that yesterday she got home and she was unloading her [place] she had sudden onset of clamminess, shortness of breath and dizziness. She was feeling lightheaded and thought she was going to pass out. She denies having symptoms like this before. She denies having any palpitations. of having sudden onset of shortness of breath. Patient was brought into the hospital by EMS and during transport was found to have atrial fibrillation with RVR. Upon arrival to the emergency center, EKG was a sinus tachycardia. She did have a couple brief episodes of atrial fibrillation. Otherwise, her vital signs were stable with blood pressure 114/60, heart rate of 100, pulse ox 100% on room air. WBC count 14.3, hemoglobin 9.7, platelet count 271. D-dimer 0.44, sodium 139, potassium 3.3, BUN 10 and creatinine 0.6. BNP was 484 and TSH 2.2. Troponin 0.96 and 0.74. Patient was placed on the selec tive care stepdown unit and cardiology consult requested. Patient has had an echocardiogram obtained this morning. 09/12: Patient has been seen by cardiology and patient will be started on eliquis and heparin drip discontinued. Iron will be added for anemia. Patient will need outpatient workup down the road. She denies any history of anemia. Metoprolol has been increased by cardiology. The patient will be discharged home today in stable condition. Discharge diagnoses: 1. New onset of A. fib with rapid ventricular response, paroxysmal. 2. History of aortic valve replacement on the [facility] in 2005, stable. 3. Hypertension. 4. Hyperlipidemia. 5. Hypothyroidism. 6. Gastroesophageal reflux disease 7. Anemia of unclear etiology. Patient will need outpatient workup. No acute blood loss. Follow-up in the office for repeat hemoglobin next week. Discharge plan: Home Impression and plan of care have been directed as dictated by the signing physician. Rochelle Jacome nurse practitioner acting as scribe for signing physician. Patient Condition at Discharge: Good Plan - Discharge Summary Discharge Rx Participant: No New Discharge Prescriptions: New Apixaban [Eliquis] 5 mg PO BID #60 tab Ferrous Sulfate [Iron (65 MG Elemental)] 325 mg PO W/LUNCH tab Metoprolol Tartrate [Lopressor] 50 mg PO BID #60 tab Continue Vitamin D3(Unknown) 1 tab PO DAILY SUMAtriptan SUCCINATE [Imitrex] 50 mg PO DAILY PRN PRN Reason: Migraine Headache Pantoprazole [Protonix] 40 mg PO DAILY Levothyroxine Sodium 112 mcg PO DAILY [place]-3 Fatty Acids/Fish Oil [Fish Oil 1,000 mg Softgel] 1 cap PO DAILY Discontinued Ibuprofen [Motrin] 800 mg PO DAILY PRN PRN Reason: Pain Aspirin 325 mg PO HS Metoprolol Tartrate [Lopressor] 25 mg PO BID Simvastatin 40 mg PO HS Lisinopril [Zestril] 5 mg PO DAILY Discharge Medication List Levothyroxine Sodium 112 mcg PO DAILY 09/10/18 [History] [place]-3 Fatty Acids/Fish Oil [Fish Oil 1,000 mg Softgel] 1 cap PO DAILY 09/10/18 [History] Pantoprazole [Protonix] 40 mg PO DAILY 09/10/18 [History] SUMAtriptan SUCCINATE [Imitrex] 50 mg PO DAILY PRN 09/10/18 [History] Vitamin D3(Unknown) 1 tab PO DAILY 09/10/18 [History] Apixaban [Eliquis] 5 mg PO BID #60 tab 09/12/18 [Rx] Ferrous Sulfate [Iron (65 MG Elemental)] 325 mg PO W/LUNCH tab 09/12/18 [Rx] Metoprolol Tartrate [Lopressor] 50 mg PO BID #60 tab 09/12/18 [Rx] Follow up Appointment(s)/Referral(s): Jg Mcadams MD [Primary Care Provider] - 09/30/18 2:15 pm Justin Daugherty MD [STAFF PHYSICIAN] - 09/22/18 1:30 pm (With Crystal Elin SERVICE WORKER HELPER.) Patient Instructions/Handouts: A-fib (Atrial Fibrillation) (DC), Safe Use of Anticoagulants (DC) Activity/Diet/Wound Care/Special Instructions: [place] elder $30 Discharge Disposition: HOME SELF-CARE
[2018-09-13] MEDS ORDERED: LEVOTHYROXINE 112 MCG TAB PO SCH (06:30)
[2018-09-13] MEDS ORDERED: PANTOPRAZOLE 40 MG TABLET PO SCH (09:00)
== END 2018-09-12 14:13 | disposition home or self-care (01) ==
LOC: EC 19:34 → 3SCARD 21:40
PROVIDERS: ADMIT Internal Medicine; ATTEND Internal Medicine
DX: I48.0 Paroxysmal atrial fibrillation (principal); R77.8 Other specified abnormalities of plasma proteins; K21.9 Gastro-esophageal reflux disease without esophagitis; I11.9 Hypertensive heart disease without heart failure; E78.5 Hyperlipidemia, unspecified; E03.9 Hypothyroidism, unspecified; E87.6 Hypokalemia; R23.1 Pallor; D64.9 Anemia, unspecified; R11.2 Nausea with vomiting, unspecified; E66.9 Obesity, unspecified; Z68.34 Body mass index [BMI] 34.0-34.9, adult; Z95.2 Presence of prosthetic heart valve; Z90.49 Acquired absence of other specified parts of digestive tract; Z79.890 Hormone replacement therapy; Z79.82 Long term (current) use of aspirin; Z79.899 Other long term (current) drug therapy; Z82.49 Family history of ischemic heart disease and other diseases of the circulatory system
CPT/HCPCS: 96376 ×2; 96361 ×3; 96366 ×3; 96367; 96365; 96375; 99285; 36415; 94760; 93005; 93306; 85379; 83880; 80061; 80053; 83735 ×2; 84100; 84132; 84443; 84484 ×2; 85025; 85027; 85049 ×2; 85610; 85730 ×3; 71046; G0378 ×3; J1644 ×4; J3475 ×2

== ENCOUNTER → 2018-10-01 | Day surgery (SDC) | payer BC ==
[2018-09-25 15:54] VITALS: BMI 32.9
[~2018-10-01] MED LIST: ACETAMINOPHEN TAB 325 MG TAB ONE; ACETAMINOPHEN TAB 325 MG TAB PO STA; ALPRAZolam 0.25 MG TAB PO PRN; ALPRAZolam 0.5 MG TAB PO PRN; ASPIRIN 325 MG TAB PO STA; ATORVASTATIN 80 MG TAB PO STA; CHOLECALCIFEROL 400 UNIT TAB PO SCH; FERROUS SULFATE 325 MG TAB PO SCH; HEPARIN SODIUM 1,000 UN/ML (10ML VL) IV ONE; HEPARIN SODIUM 1,000 UN/ML (10ML VL) ONE; IOPAMIDOL-370 125ML BTL INJ ONE; LEVOTHYROXINE 112 MCG TAB PO SCH; LIDOCAINE 1% INJ 10MG/ML (20 ML MDV) ONE; LIDOCAINE 1% INJ 10MG/ML (20 ML MDV) SQ ONE; METOPROLOL TARTRATE 50 MG TAB PO SCH; NITROGLYCERIN SL TABS 0.4 MG TAB SUBLINGUAL PRN; NON-FORMULARY DRUG (Simvastatin [Simvastatin] 40 MG) PO SCH; PANTOPRAZOLE 40 MG TABLET PO SCH; RX INFO: IV CONTRAST WAS GIVEN 1 EACH MISC MISCELLANE PRN; SODIUM CHLORIDE 0.9% 1,000 ML IV ONE; SODIUM CHLORIDE 0.9% 1,000 ML IV SCH; SODIUM CHLORIDE 0.9% 1,000 ML in EMPTY BAG 1 BAG IV ONE; SUMAtriptan SUCCINATE 50 MG TAB PO PRN; VERAPAMIL 2.5 MG/ML 2 ML AMP ONE; VERAPAMIL SYRINGE (5 MG/10 ML) INTRAARTER ONE
[2018-10-01 08:19] VITALS: RESP 18; TEMP 98.2
[2018-10-01 08:38] LABS: Anisocytosis Slight; Basophils # (A) 0.1 k/uL (0-0.2); Basophils % (A) 1 %; Eosinophils # (A) 0.2 k/uL (0-0.7); Eosinophils % (A) 2 %; HCT 35.8 % (34.0-46.0); HGB 11.3 gm/dL (11.4-16.0); Hypochromasia Slight; Lymphocytes # (A) 2.3 k/uL (1.0-4.8); Lymphocytes % (A) 25 %; MCH 24.5 pg (25.0-35.0); MCHC 31.5 g/dL (31.0-37.0); MCV 77.6 fL (80.0-100.0); Mean Platelet Volume 8.1; Microcytosis Slight; Monocytes # (A) 0.7 k/uL (0-1.0); Monocytes % (A) 7 %; Neutrophils % (A) 64 %; Platelet Count 305 k/uL (150-450); RBC 4.61 m/uL (3.80-5.40); RDW 16.1 % (11.5-15.5); WBC 9.4 k/uL (3.8-10.6)
[2018-10-01] MEDS: BENZOCAINE SPRAY 1 CAN MUCOUS MEM ONE ×2 (08:57→09:22)
[2018-10-01] MEDS: fentaNYL (PF) 50 MCG/ML 2 ML AMP IVP ONE ×2 (09:02→09:27)
[2018-10-01] MEDS: MIDAZOLAM (PF) 2 MG/2 ML VIAL IVP ONE ×2 (09:03→09:23)
--- NOTE | 2018-10-01 10:01 | ECHOT ---
TRANSESOPHAGEAL ECHOCARDIOGRAM INDICATION: Evaluation of aortic valve. PROCEDURE: After explaining the procedure to the patient, its risks and the complications, blood pressure, heart rate, O2 saturation was monitored. The throat was sprayed Cetacaine. She received 2 mg intravenous Versed, 50 mcg intravenous fentanyl. The probe was introduced esophagus without difficulty. Images were obtained. Following that, the probe was removed. There was no immediate complication. FINDINGS: Left atrial size is mildly dilated. Left atrial appendage is normal. Left ventricular size and systolic function normal. Concentric left ventricular hypertrophy was noted. The aortic valve is a bioprosthetic valve with severe calcification. The leaflets were not well visualized, but there was severe calcification involving the leaflets. The mitral valve revealed mild thickening. Tricuspid valve is normal. Descending thoracic aorta appears to be normal. Contrast bubble study revealed no evidence of shunting across the interatrial septum with Valsalva maneuver. No pericardial effusion was noted. Doppler pulse wave and color Doppler were obtained and revealed moderate mitral with mild aortic regurgitation. The peak gradient across the aortic valve is 143 mmHg with a mean of 84 mmHg. There was mild tricuspid regurgitation. No shunting was noted by color Doppler study. CONCLUSION: 1. Mildly dilated left atrium with normal appearance of left atrial appendage. 2. Normal left ventricular size and systolic function with concentric left ventricular hypertrophy. 3. Bioprosthetic valve with severe calcification and severe stenosis with a mean gradient of 84 mmHg and mild aortic regurgitation. 4. Moderate mitral regurgitation. 5. Mild tricuspid regurgitation. 6. No shunting across the interatrial septum. 7. No pericardial effusion. 8. Normal appearance of the descending thoracic aorta. MMODL / IJN: [id number] /
[2018-10-01 10:50] LABS: O2 Sat Blood Gas 63.5 %
[2018-10-01 10:53] LABS: O2 Sat Blood Gas 66.4 %
[2018-10-01 10:56] LABS: O2 Sat Blood Gas 97.6 %
--- NOTE | 2018-10-01 11:46 | CC ---
CARDIAC CATHETERIZATION REPORT Mrs. Ferrari is a 58-year-old female with a known history of hypertension, hyperlipidemia, status post aortic valve replacement with bioprosthetic valve who presented with symptoms of progressive dyspnea recently and symptoms of congestive heart failure. Her echocardiogram showed severe aortic stenosis. In view of that, recommendation was made regarding cardiac catheterization. The procedure as well as the risks and the complications were discussed with the patient who is in full understanding and agreement. PROCEDURE: Patient was brought to the laboratory technology teacher in a fasting semi-sedated state after receiving fentanyl and Benadryl and achieving moderate conscious sedated state. Using Xylocaine anesthesia in the Seldinger technique, a 6-[place] sheath was introduced in the right radial artery. Subsequently, the antecubital venous access was exchanged to a 6-[place] sheath using guidewire exchange technique. Subsequently, a [place]-Brianna catheter was advanced and pressures were calculated. Cardiac output by thermodilution was calculated. Following that, selective right and left coronary angiography were performed using 5-[place] 3.5 bend right and left Francine catheter. Multiple views of the coronary artery including hemiaxial views obtained. Following that, catheter and sheaths were removed. Hemostasis was obtained with deployment of a TR band and compression of the right antecubital area. Of note, that the patient received 4500 units of intravenous heparin as well as intra-arterial verapamil. There was no immediate complication. FINDINGS: HEMODYNAMICS: Pulmonary artery systolic pressure of 28 with a diastolic of 17 and a mean of 20 mmHg. Pulmonary capillary wedge pressure A-wave of 18, V-wave of 17 with a mean of 17 mmHg. Right ventricular systolic pressure of 30 with an end-diastolic cough of 10 mmHg. Right atrial A-wave of 12, V-wave of 10 with a mean of 8 mmHg. Cardiac output by thermodilution 4.9 L/minute. Pulmonary artery saturation of 64%, right atrial saturation 66%, arterial saturation of 98%. CORONARIES: LEFT MAIN: This is a short size vessel bifurcating immediately to left anterior descending artery and left circumflex. Left main coronary artery has no evidence of high-grade stenosis. LEFT ANTERIOR DESCENDING ARTERY: This is a large-sized vessel reaching toward the apex with a wraparound apex segment giving rise to a large diagonal branch. Left anterior descending artery as well as branches have no evidence of obstructive coronary artery disease. LEFT CIRCUMFLEX: This is a large dominant vessel bifurcating distally PDA and posterolateral segment and branches giving rise to a large obtuse marginal branch. The left circumflex as well as branches have no evidence of obstructive coronary artery disease. RIGHT CORONARY ARTERY: This is a small nondominant vessel. LEFT VENTRICULOGRAM: Left ventriculogram is not performed. CONCLUSION: 1. Normal coronary arteries. 2. Heavily calcified bioprosthetic aortic valve on fluoroscopy. RECOMMENDATION: In view of finding anatomy, I recommend proceeding with evaluation for replacement of the aortic valve either with valve in valve percutaneous approach or surgical approach. The patient has underwent her initial surgery in 2005 at [facility]. She will be are referred to [facility] for further evaluation. Those findings and recommendation were discussed with the patient and her family who are in full understanding and agreement. Duration of procedure is 30 minutes. MMODL / IJN: [id number] /
[2018-10-01 15:08] VITALS: BP 104/50; PULSE 73
== END | disposition home or self-care (01) ==
LOC: CATHCVL 07:45
PROVIDERS: ATTEND Internal Medicine Interventional Cardiology
DX: T82.857A Stenosis of other cardiac prosthetic devices, implants and grafts, initial encounter (principal); I08.1 Rheumatic disorders of both mitral and tricuspid valves; I48.0 Paroxysmal atrial fibrillation; I10 Essential (primary) hypertension; E78.2 Mixed hyperlipidemia; Z79.01 Long term (current) use of anticoagulants; Z79.890 Hormone replacement therapy; Z79.899 Other long term (current) drug therapy
CPT/HCPCS: 93312; 93320; 93325; 93456; 85018; 82810; 85025; C1894 ×2; C1751; C1769; J2001; J3010; J1644; Q9967; J2250

== ENCOUNTER 2018-11-14 22:54 | Inpatient (IN) | payer BC ==
[2018-11-15 00:18] VITALS: RESP 18; BMI 33.0
[2018-11-15] MEDS ORDERED: LEVOTHYROXINE 112 MCG TAB PO SCH (06:30)
[2018-11-15 07:22] LABS: Anisocytosis Slight; Basophils # (A) 0.1 k/uL (0-0.2); Basophils % (A) 1 %; Eosinophils # (A) 0.2 k/uL (0-0.7); Eosinophils % (A) 1 %; HCT 34.1 % (34.0-46.0); HGB 10.6 gm/dL (11.4-16.0); Hypochromasia Marked; Lymphocytes # (A) 2.9 k/uL (1.0-4.8); Lymphocytes % (A) 23 %; MCH 24.6 pg (25.0-35.0); MCHC 31.2 g/dL (31.0-37.0); MCV 78.8 fL (80.0-100.0); Mean Platelet Volume 8.8; Microcytosis Slight; Monocytes # (A) 0.8 k/uL (0-1.0); Monocytes % (A) 7 %; Neutrophils # (A) 8.6 k/uL (1.3-7.7); Neutrophils % (A) 67 %; Platelet Count 239 k/uL (150-450); RBC 4.33 m/uL (3.80-5.40); RDW 16.4 % (11.5-15.5); WBC 12.9 k/uL (3.8-10.6)
[2018-11-15 07:29] LABS: ALT 22 U/L (9-52); AST 20 U/L (14-36); African American GFR (CKD) >90 (>60 ml/min/1.73 sqM); Albumin 3.8 g/dL (3.5-5.0); Alkaline Phosphatase 59 U/L (38-126); Anion Gap 7 mmol/L; Blood Urea Nitrogen 8 mg/dL (7-17); Carbon Dioxide 25 mmol/L (22-30); Chloride 108 mmol/L (98-107); Glucose 108 mg/dL (74-99); Magnesium 2.1 mg/dL (1.6-2.3); Potassium 4.1 mmol/L (3.5-5.1); Sodium 140 mmol/L (137-145); Total Bilirubin 0.7 mg/dL (0.2-1.3); Total Protein 6.2 g/dL (6.3-8.2)
[2018-11-15] MEDS ORDERED: PANTOPRAZOLE 40 MG TABLET PO SCH (07:30)
[2018-11-15 07:40] LABS: T4, Free (Free Thyroxine) 1.46 ng/dL (0.78-2.19)
[2018-11-15] MEDS ORDERED: METOPROLOL TARTRATE 50 MG TAB PO SCH (09:00)
[2018-11-15] MEDS ORDERED: APIXABAN 5 MG TAB PO SCH (09:00)
[2018-11-15 11:17] VITALS: BP 127/63; PULSE 74; TEMP 98.1
--- NOTE | 2018-11-15 11:35 | CONS ---
CONSULTATION Mrs. Ferrari is a 58-year-old female who presented to the hospital with symptoms of dyspnea and a syncopal episode. She was admitted to the hospital in [place] and subsequently transferred to [facility]. The patient has a known history of aortic valve replacement for aortic stenosis in 2004. She recently was admitted to hospital with symptoms of progressive dyspnea, was found to have severe aortic stenosis and moderate tricuspid and mitral regurgitation. During her recent admission she had an episode of atrial fibrillation and subsequently converted to sinus mechanism. She was admitted at the end of September and underwent transesophageal echocardiogram that revealed a preserved left ventricular size and systolic function with severe aortic stenosis with moderate mitral and mild tricuspid regurgitation. Her coronary angiography showed no evidence of high-grade stenosis. She was subsequently seen at [facility] for further evaluation, and she is evaluated at this time for possible redo surgery versus [id number]. Yesterday she was at her sister's home and walked up the stairs, became quite short of breath and clammy, and subsequently she had a brief episode of syncope for 10 seconds. When she came to, she was aware of her surroundings. She denies any symptoms of chest pain. She denies any palpitations. She has no peripheral edema, no clear PND or orthopnea. In the emergency room in [place] there was no evidence of documented malignant arrhythmia. She was in sinus mechanism. The patient has undergone initial workup at [facility]. She is scheduled to be seen again on November 27. Her coronary risk factors are remarkable for hyperlipidemia and hypertension. MEDICATIONS: Her medications at home prior to admission included: 1. Simvastatin 40 mg daily. 2. Imitrex. 3. Metoprolol tartrate 50 mg twice a day. 4. Eliquis 5 mg twice a day. REVIEW OF SYSTEMS: RESPIRATORY SYSTEM: She has dyspnea on exertion. No recent wheezing or cough. GI SYSTEM: No recent GI bleeding. No peptic ulcer disease. SYSTEM: No dysuria or hematuria. NERVOUS SYSTEM: No stroke or seizure. She has history of migraine. PHYSICAL EXAMINATION: She is a 58-year-old female, alert, oriented, in no apparent distress. Blood pressure 115/60 with a heart rate in the 90s. HEAD: Normocephalic. EYES: Sclerae anicteric. NECK: Diminished upstroke with transmitted murmur. LUNGS: Clear to auscultation. HEART: Regular rate and rhythm. S1, S2. No S3, with systolic murmur, ejection type, heard at the base, late peaking, 3/6. No diastolic murmur. ABDOMEN: Soft, nontender. Positive bowel sounds. No organomegaly. EXTREMITIES: No edema. LAB DATA: Lab data revealed a hemoglobin of 10.6, white blood cells 12.9, BUN and creatinine of 8 and 0.5. TSH is 1.3, free T4 1.4. Her hemoglobin in [place] was 10.9. Her D- dimer was 0.44. Her troponin was 0.018. IMPRESSION: 1. Severe aortic stenosis with failure of bioprosthetic aortic valve placed in 2004. 2. Syncopal episode related to the aortic stenosis. 3. Symptoms of dyspnea on exertion. 4. Paroxysmal atrial fibrillation. Remains in sinus mechanism. 5. Hypertension by history. 6. Hyperlipidemia. 7. History of migraine. RECOMMENDATIONS: From the cardiac standpoint, I will resume her home medication, increase her level of activity. I have asked her not to engage in heavy activity. She will be restarted on her regular medication. Increase her level activity, and if she is stable I would expect she should be able to be discharged home soon and follow up at [facility] as scheduled. Thank you for this consult. Will follow with you. ANETTE / CARLN: [id number] /
[2018-11-15] MEDS ORDERED: FERROUS SULFATE 325 MG TAB PO SCH (12:30)
[2018-11-15] MEDS ORDERED: ALPRAZolam 0.25 MG TAB PO PRN (12:37)
[2018-11-15] MEDS ORDERED: SUMAtriptan SUCCINATE 50 MG TAB PO PRN (12:37)
--- NOTE | 2018-11-15 15:56 | P.HPIM ---
History of Present Illness H&P Date: 11/15/18 (this document was serve both as H&P and discharge summary) 58 years old female who is one of my clinic patient with past medical history of GERD, hypertension, hyperlipidemia, hypothyroidism, history of aortic valve replacement done in 2005 at the [facility] who was last admit [facility] in September 2018 with a new onset atrial fibrillation with RVR comes in today with syncope. Patient was at her friend's house when she had an episode of syncope after slight exertion while climbing stairs. patient had a sudden onset of clamminess, dizziness, change in color with shortness of breath for a day before she passed out. She regained consciousness within 15 second and was brought to ER by ambulance for evaluation.patient was recently seen by U kerri Dominguez and is undergoing testing prior to her procedure for aortic valve replacement either a redo surgery versus valve in valve. cardiac angiographically was done by Dr. Daugherty which was negative for coronary artery disease but did show severe aortic stenosis with moderate mitral and mild tricuspid regurgitation. On evaluation today patient had a temp of 98.1 heart rate 74 respiratory rate 18 blood pressure 127/83. His blood work suggest leukocyte of 12.9 hemoglobin 10.6 platelets 239.CMP suggested creatinine 0.5 glucose 108 total protein 6.2 TSH of 1.3. Patient was evaluated by cardiology Review of Systems Constitutional: Denies chills, Denies fever, Denies lethargy, Denies malaise, Denies poor appetite, Denies weakness, Denies weight loss Eyes: denies decreased vision, denies diplopia, denies discharge, denies pain Ears: deny: decreased hearing Ears, nose, mouth and throat: Denies dental pain, Denies headache, Denies nasal discharge, Denies nose pain Cardiovascular: Denies chest pain, Denies decreased exercise tolerance, Denies edema, Denies high blood pressure, Denies irregular heart beat, Denies palpitations, Denies paroxysmal nocturnal dyspnea, Denies rapid heart beat, Denies shortness of breath Respiratory: Denies congestion, Denies cough, Denies cough with sputum, Denies dyspnea, Denies home oxygen, Denies wheezing Gastrointestinal: Denies abdominal pain, Denies change in bowel habits, Denies coffee ground emesis, Denies early satiety, Denies excessive gas, Denies heartburn, Denies hematemesis, Denies hematochezia, Denies loss of appetite, Denies nausea, Denies vomiting Genitourinary: Denies dysuria, Denies flank pain, Denies kidney stones, Denies menorrhagia, Denies urgency, Denies urinary frequency Musculoskeletal: Denies gait dysfunction, Denies limitation of motion, Denies morning stiffness, Denies muscle cramps Integumentary: Denies rash, Denies wounds, Denies brittle nails, Denies change in hair/nails, Denies darkening of skin Neurological: Denies balance difficulties, Denies change in speech, Denies double vision, Denies gait dysfunction, Denies loss of vision, Denies motor disturbance, Denies numbness, Denies paralysis, Denies paresthesias, Denies seizures positive for syncope Psychiatric: Denies anxiety, Denies depression Endocrine: Denies excessive sweating, Denies excessive thirst, Denies high blood sugars, Denies palpitations Hematologic/Lymphatic: Denies easy bruising, Denies lymphadenopathy Past Medical History Past Medical History: Atrial Fibrillation, GERD/Reflux, Hyperlipidemia, Hypertension, Thyroid Disorder History of Any Multi-Drug Resistant Organisms: None Reported Past Surgical History: Cholecystectomy, Heart Catheterization Additional Past Surgical History / Comment(s): DREW 09/2018; Aortic valve replacement 2005 Past Anesthesia/Blood Transfusion Reactions: Motion Sickness Past Psychological History: No Psychological Hx Reported Smoking Status: Never smoker Past Alcohol Use History: Occasional Additional Past Alcohol Use History / Comment(s): Patient is a lifelong n onsmoker, no illicit drug use, occasional alcohol use. Past Drug Use History: None Reported - Past Family History Father Additional Family Medical History / Comment(s): Father at age 52 from a myocardial infarction. Mother Additional Family Medical History / Comment(s): Mother at age 89 with history of hyperlipidemia and hypothyroidism. Brother(s) Additional Family Medical History / Comment(s): Patient has 4 brothers and one at age 65 with known coronary artery disease and two-vessel CABG at age 55. 3 other brothers all have high cholesterol. Patient has one sister with hyperlipidemia. Patient does not have any children. Medications and Allergies Home Medications Medication Instructions Recorded Confirmed Type Levothyroxine Sodium 112 mcg PO DAILY 09/10/18 11/15/18 History [place]-3 Fatty Acids/Fish Oil [Fish 1 cap PO DAILY 09/10/18 11/15/18 History Oil 1,000 mg Softgel] Apixaban [Eliquis] 5 mg PO BID #60 tab 09/12/18 11/15/18 Rx Ferrous Sulfate [Iron (65 MG 325 mg PO W/LUNCH tab 09/12/18 11/15/18 Rx Elemental)] Metoprolol Tartrate [Lopressor] 50 mg PO BID #60 tab 09/12/18 11/15/18 Rx Simvastatin 40 mg PO HS 09/25/18 11/15/18 History ALPRAZolam [Xanax] 0.25 mg PO DAILY PRN 11/15/18 11/15/18 History Cholecalciferol [Vitamin D3 (25 1,000 unit PO DAILY 11/15/18 11/15/18 History Mcg = 1000 Iu)] Pantoprazole Sodium [Protonix] 20 mg PO DAILY 11/15/18 11/15/18 History SUMAtriptan SUCCINATE [Imitrex] 50 mg PO DAILY PRN 11/15/18 11/15/18 History Allergies Allergy/AdvReac Type Severity Reaction Status Date / Time No Known Allergies Allergy Verified 11/15/18 08:10 Physical Exam Vitals: Vital Signs Temp Pulse Resp BP Pulse Ox 11/15/18 11:16 98.1 F 74 18 127/63 98 11/15/18 08:00 97.6 F 99 18 115/69 97 11/15/18 04:36 97.9 F 91 18 109/58 98 11/15/18 00:15 97.7 F 103 H 18 118/61 98 Intake and Output 11/14/18 11/15/18 11/15/18 22:59 06:59 14:59 Intake Total 222 Balance 222 Intake: Oral 222 Other: # Voids 1 Weight 81.8 kg - Constitutional General appearance: cooperative, no acute distress, obese - EENT Eyes: anicteric sclerae, PERRLA, normal appearance ENT: hearing grossly normal - Neck Neck: no lymphadenopathy, normal ROM, no other, no rigidity, no stridor, no thyromegaly - Respiratory Respiratory: bilateral: CTA, negative: diminished, dullness, rales, rhonchi - Cardiovascular Rhythm: regular Heart sounds: normal: S1, S2 Abnormal Heart Sounds: 4/5 systolic murmurthe second intercostal space and thefifth intercostal space lateral sternalmargin, no diastolic murmur, no rub, no S3 Gallop, no S4 Gallop, no click - Gastrointestinal General gastrointestinal: normal bowel sounds, soft - Integumentary Integumentary: no rash - Neurologic Neurologic: CNII-XII intact - Musculoskeletal Musculoskeletal: gait normal, strength equal bilaterally - Psychiatric Psychiatric: A&O x's 3, appropriate affect Results CBC & Chem 7: 11/15/18 06:25 11/15/18 06:25 Labs: Abnormal Lab Results - Last 24 Hours (Table) 11/15/18 11/15/18 Range/Units 06:25 06:25 WBC 12.9 H (3.8-10.6) k/uL Hgb 10.6 L (11.4-16.0) gm/dL MCV 78.8 L (80.0-100.0) fL MCH 24.6 L (25.0-35.0) pg RDW 16.4 H (11.5-15.5) % Neutrophils # 8.6 H (1.3-7.7) k/uL Chloride 108 H (98-107) mmol/L Creatinine 0.50 L (0.52-1.04) mg/dL Glucose 108 H (74-99) mg/dL Total Protein 6.2 L (6.3-8.2) g/dL Thrombosis Risk Factor Assmnt - DVT/VTE Prophylaxis DVT/VTE Prophylaxis: Pharmacologic Prophylaxis ordered - Choose All That Apply Each Factor Represents 1 point: Age 41-60 years, Obesity (BMI >25) Thrombosis Risk Factor Assessment Total Risk Factor Score: 2 Thrombosis Risk Factor Assessment Level: Low Risk Assessment and Plan Plan: 1. syncope secondary to severe aortic stenosis with History of aortic valve replacement on the [facility] in 2005. DREW suggestive of severe aortic stenosis plan for valve replacement at the [facility] 2. Paroxysmal A. fib Patient is currently in a sinus rhythm. Lopressor 25 mg twice daily.Rocky was 5 mg twice a day 3. Hypertension. Continue Lopressor 25 mg twice daily 4. Hyperlipidemia. Continue atorvastatin 80 mg daily. 5. Hypothyroidism. Continue levothyroxine 112 g daily. 6. Gastroesophageal reflux disease and GI prophylaxis. Continue Protonix 40 mg daily. 7. DVT prophylaxis. on Levaquin Disposition home with homecare Recommendation to avoid strenuous activity
[2018-11-15] MEDS ORDERED: ATORVASTATIN 20 MG TAB PO SCH (21:00)
[2018-11-15] MEDS ORDERED: ATORVASTATIN 40 MG TAB PO SCH (21:00)
[2018-11-16] MEDS ORDERED: PANTOPRAZOLE 40 MG TABLET PO SCH (07:30)
[2018-11-16] MEDS ORDERED: CHOLECALCIFEROL 1,000 UNIT TAB PO SCH (09:00)
== END 2018-11-15 14:10 | disposition home or self-care (01) | DRG 307 ==
LOC: 3SCARD 23:55
PROVIDERS: ADMIT Internal Medicine; ATTEND Internal Medicine
DX: I35.0 Nonrheumatic aortic (valve) stenosis (principal); Z95.2 Presence of prosthetic heart valve; E03.9 Hypothyroidism, unspecified; E78.5 Hyperlipidemia, unspecified; I10 Essential (primary) hypertension; I48.0 Paroxysmal atrial fibrillation; K21.9 Gastro-esophageal reflux disease without esophagitis; Z79.01 Long term (current) use of anticoagulants; Z79.890 Hormone replacement therapy; Z79.899 Other long term (current) drug therapy; Z82.49 Family history of ischemic heart disease and other diseases of the circulatory system; Z90.49 Acquired absence of other specified parts of digestive tract
CPT/HCPCS: 80053; 83735; 84439; 84443; 85025